=== PATIENT | female | born 1975 | race Caucasian/White ===

== ENCOUNTER 2016-09-03 10:16 | Inpatient (IN) | payer OTHER, BC ==
[~2016-09-03] VITALS: Ht 188 cm; Wt 89.2 kg
[2016-09-03] VITALS (7 sets, daily range): BP systolic 0–97; BP diastolic 0–64
[~2016-09-03 10:16] MED LIST: ABILIFY2 MG PO; BACTRIM,SEPT1 TABLET PO; CLONAZEPAM0.5 MG PO; CYANOCOBAL1000 MCG/2 IM; ENDOCET 5-3251 EACH PO; INVanz IV; KEFLEX500 MG PO; KLONOPIN1 M1 PO; KlonoPIN PO; LEVOXYL175 MCG PO; LEVOXYL200 MCG PO; Levothroid,Synthroid PO; MEMANTINE HCL10 MG PO; NORCO 5/3251 TABLET PO; NORCO 7.5/321 TABLET PO; PERCOCET 5/31 TABLET PO; PRISTIQ50 MG PO; PROTRIPTYLINE HC5 MG PO; SEROQUEL100 MG PO; SYNTHROID100 MCG PO; TOPAMAX100 MG PO; TOPAMAX50 MG PO; TRAZODONE HCL50 MG PO; TROKENDI XR200 MG PO; ULTRAM50 MG PO; VALIUM5 MG PO; VICODIN,LORT1 TABLET PO; ZOFRAN ODT4 MG PO; ZOLPIDEM TART12.5 MG PO; [UNRECOGNIZED DRUG - OTHER] SQ
[2016-09-03 10:27] LABS: CREATININE 0.7 mg/dL (0.6-1.3); POTASSIUM 3.3 mEq/L (3.7-5.4)
[2016-09-03 10:32] LABS: BASOPHIL COUNT 0.1 K/uL (0-0.1); EOSINOPHIL (%) 1.4 % (0-5); EOSINOPHIL COUNT 0.2 K/uL (0-0.3); HEMATOCRIT 35.7 % (36.0-46.0); IMMATURE GRANULOCYTE (%) 0.5 % (0.0-0.7); IMMATURE GRANULOCYTE COUNT 0.1 K/uL; INSTRUMENT ABS NEUTROPHIL CT 7.3 K/uL; MCH 30.1 PG (29.0-34.0); MCHC 34.2 G/DL (30.0-36.0); MCV 88.1 FL (83-99); MEAN PLAT.VOLUME 9.8 uM^3 (9.5-12.4); MONOCYTE (%) 3.4 % (3-12); MONOCYTE COUNT 0.4 K/uL (0-0.8); NEUTROPHIL (%) 61.1 % (45-76); NEUTROPHIL COUNT 7.3 K/uL (1.8-6.4); PLATELET COUNT 212 K/uL (156-360); RBC DIS.WIDTH-CV 12.9 % (11.8-14.6); RBC DIS.WIDTH-SD 41.9 % (39-53); RED BLOOD COUNT 4.05 M/uL (3.80-5.20); WHITE BLOOD COUNT 11.9 K/uL (4.1-10.2)
[2016-09-03 10:41] LABS: AMYLASE 46 IU/L (1-118); CHLORIDE 104 mEq/L (99-109); POTASSIUM 3.3 mEq/L (3.7-5.4); SODIUM 138 mEq/L (136-147)
[2016-09-03 10:43] LABS: GLUCOSE 177 mg/dL (70-99)
[2016-09-03 10:44] LABS: ANION GAP 14 MEQ/L (2-14)
[2016-09-03 10:46] LABS: SERUM ETHYL ALCOHOL < 10 mg/dL
[2016-09-03 10:47] LABS: GFR ESTIMATE (CALCULATED) > 59 mL/min/
[2016-09-03 10:48] LABS: UREA NITROGEN (BUN) 8 mg/dL (9-23)
[2016-09-03 10:50] LABS: LIPASE 16 U/L (1.0-51.0)
[2016-09-03 10:55] LABS: QUANTITATIVE HCG < 4.0 MIU/ML
[2016-09-03 12:58] LABS: ADD MIUA? YES; BILIRUBIN NEGATIVE; BLOOD SMALL; COLOR YELLOW ((YELLOW)); GLUCOSE (STRIP) NEGATIVE; KETONES 20; LEUKOCYTES NEGATIVE; NITRITE NEGATIVE; PROTEIN (STRIP) 100; UROBILINOGEN 0.2 MG/DL (0.2-1.0)
[2016-09-03 13:06] LABS: AMPHETAMINE NEGATIVE (500 ng/mL); BENZODIAZEPINES NEGATIVE (150 ng/mL); COCAINE NEGATIVE (150 ng/mL); METHAMPHETAMINE NEGATIVE (500 ng/mL); OPIATES (MORPHINE) NEGATIVE (100 ng/mL); PHENCYCLIDINE NEGATIVE (25 ng/mL); THC CANNABINOIDS NEGATIVE (50 ng/mL); TRICYCLIC ANTIDEPRESSANTS PRESUMPTIVE POSITIVE (300 ng/mL)
[2016-09-03 13:07] LABS: BACTERIA RARE /HPF; BARBITURATES NEGATIVE (200 ng/mL); EPITHELIAL CELLS RARE /HPF; INTERNAL CONTROLS VALID? YES; METHADONE NEGATIVE (200 ng/mL); MUCUS NONE SEEN /LPF; OXYCODONE NEGATIVE (100 ng/mL); PROPOXYPHENE NEGATIVE (300 ng/mL); UCUL ADDED? NO
[2016-09-03 13:10] LABS: SPECIFIC GRAVITY 1.093 (1.000-1.030)
[2016-09-03 14:59] LABS: HEMATOCRIT 33.8 % (36.0-46.0); MCV 88.7 FL (83-99)
[2016-09-03 15:05] LABS: INTER. NORMALIZED RATIO 1.1; PROTHROMBIN TIME 12.6 SEC (10.2-12.9)
[2016-09-03 16:07] LABS: HEMATOCRIT 31.1 % (36.0-46.0); MCV 89.9 FL (83-99)
[2016-09-03 17:36] LABS: METH RESISTANT S AUREUS PCR NEGATIVE (NEGATIVE)
[2016-09-03 17:39] LABS: PROBE CHECK PASS; SPECIMEN PROCESSING CONTROL PASS
[2016-09-04] VITALS (23 sets, daily range): BP systolic 86–115; BP diastolic 50–66
[2016-09-04 02:57] LABS: MCH 29.4 PG (29.0-34.0); PLAT.SUFFICIENCY DECREASED; PLATELET CLUMPS PRESENT - PLATELET COUNT APPEARS ADQ.; RBC DIS.WIDTH-CV 13.2 % (11.8-14.6); RBC DIS.WIDTH-SD 42.9 % (39-53); RED BLOOD COUNT 3.37 M/uL (3.80-5.20); WHITE BLOOD COUNT 9.7 K/uL (4.1-10.2)
[2016-09-04 06:42] LABS: HEMATOCRIT 27.9 % (36.0-46.0); MCH 30.4 PG (29.0-34.0); MCHC 33.7 G/DL (30.0-36.0); MCV 90.3 FL (83-99); MEAN PLAT.VOLUME 9.9 uM^3 (9.5-12.4); RBC DIS.WIDTH-CV 13.3 % (11.8-14.6); RED BLOOD COUNT 3.09 M/uL (3.80-5.20); WHITE BLOOD COUNT 7.8 K/uL (4.1-10.2)
[2016-09-04 06:53] LABS: POINT-OF-CARE METER ID UU14208751
[2016-09-04 07:21] LABS: PLATELET COUNT 93 K/uL (156-360)
[2016-09-04 07:36] LABS: ALKALINE PHOSPHATASE 39 IU/L (3-129); ANION GAP 12 MEQ/L (2-14); CHLORIDE 105 MEQ/L (99-109); GFR ESTIMATE (CALCULATED) > 59 mL/min/; GLUCOSE 131 mg/dL (70-99); MAGNESIUM 1.6 mg/dl (1.3-2.7); SAMPLE HEMOLYSIS CHECK 0; SAMPLE ICTERIC CHECK 0; SAMPLE LIPEMIA CHECK 0; SODIUM 138 MEQ/L (136-147); TOTAL BILIRUBIN 0.8 MG/DL (0.0-1.0); UREA NITROGEN (BUN) 6 mg/dL (9-23)
[2016-09-04 07:56] LABS: Estimated Average Glucose 108 mg/dL (70-123); HEMOGLOBIN A1c (GLYCOHEMOGLOB) 5.4 % HGB (Below 5.7)
[2016-09-04 12:09] LABS: POINT-OF-CARE METER ID UU13113748; POINT-OF-CARE USER ID AGYTJR
[2016-09-04 12:41] LABS: MCH 30.6 PG (29.0-34.0); MCHC 33.4 G/DL (30.0-36.0); MCV 91.5 FL (83-99); MEAN PLAT.VOLUME 9.9 uM^3 (9.5-12.4); PLATELET COUNT 89 K/uL (156-360); RBC DIS.WIDTH-CV 13.5 % (11.8-14.6); RBC DIS.WIDTH-SD 46.3 % (39-53); RED BLOOD COUNT 3.17 M/uL (3.80-5.20); WHITE BLOOD COUNT 6.6 K/uL (4.1-10.2)
[2016-09-04] MEDS ORDERED: CLONAZEPAM0.5 MG PO (14:45)
[2016-09-04] MEDS ORDERED: LEVO-T175 MCG PO (14:48)
[2016-09-04] MEDS ORDERED: SERTRALINE HCL100 MG PO (14:49)
[2016-09-04] MEDS ORDERED: GABAPENTIN100 MG PO (14:51)
[2016-09-04] MEDS ORDERED: QUETIAPINE FUMA50 MG PO (14:52)
[2016-09-04] MEDS ORDERED: IBUPROFEN800 MG PO (14:55)
[2016-09-04 16:49] LABS: POINT-OF-CARE METER ID UU14208751; POINT-OF-CARE USER ID AGYTJR
[2016-09-04 18:45] LABS: HEMATOCRIT 30.4 % (36.0-46.0); MCH 30.6 PG (29.0-34.0); MCHC 33.6 G/DL (30.0-36.0); MCV 91.3 FL (83-99); PLATELET COUNT 85 K/uL (156-360); RBC DIS.WIDTH-CV 13.6 % (11.8-14.6); RBC DIS.WIDTH-SD 45.7 % (39-53); RED BLOOD COUNT 3.33 M/uL (3.80-5.20); WHITE BLOOD COUNT 7.1 K/uL (4.1-10.2)
[2016-09-05] VITALS (25 sets, daily range): BP systolic 0–123; BP diastolic 0–77
[2016-09-05 00:46] LABS: POINT-OF-CARE METER ID UU13113748
[2016-09-05 00:51] LABS: HEMATOCRIT 26.3 % (36.0-46.0); MCH 29.7 PG (29.0-34.0); MCHC 32.7 G/DL (30.0-36.0); MCV 90.7 FL (83-99); PLATELET COUNT 76 K/uL (156-360); RBC DIS.WIDTH-CV 13.2 % (11.8-14.6); RBC DIS.WIDTH-SD 44.4 % (39-53); WHITE BLOOD COUNT 5.6 K/uL (4.1-10.2)
[2016-09-05 05:45] LABS: HEMATOCRIT 25.8 % (36.0-46.0); MCHC 33.7 G/DL (30.0-36.0); MCV 91.8 FL (83-99); PLATELET COUNT 75 K/uL (156-360); RBC DIS.WIDTH-CV 13.4 % (11.8-14.6); RBC DIS.WIDTH-SD 45.7 % (39-53); RED BLOOD COUNT 2.81 M/uL (3.80-5.20); WHITE BLOOD COUNT 5.1 K/uL (4.1-10.2)
[2016-09-05 06:07] LABS: ANION GAP 5 MEQ/L (2-14); CHLORIDE 107 MEQ/L (99-109); GFR ESTIMATE (CALCULATED) > 59 mL/min/; GLUCOSE 136 mg/dL (70-99); MAGNESIUM 1.8 mg/dl (1.3-2.7); SAMPLE HEMOLYSIS CHECK 0; SAMPLE ICTERIC CHECK 0; SAMPLE LIPEMIA CHECK 0; SODIUM 140 MEQ/L (136-147); UREA NITROGEN (BUN) 3 mg/dL (9-23)
[2016-09-05 06:31] LABS: POINT-OF-CARE METER ID UU13113731
[2016-09-05 12:33] LABS: POINT-OF-CARE METER ID UU13113731; POINT-OF-CARE USER ID AGYTJR
[2016-09-05 13:27] LABS: HEMATOCRIT 28.2 % (36.0-46.0); MCH 29.7 PG (29.0-34.0); MCHC 32.6 G/DL (30.0-36.0); PLATELET COUNT 85 K/uL (156-360); RBC DIS.WIDTH-CV 13.5 % (11.8-14.6); RBC DIS.WIDTH-SD 45.2 % (39-53); WHITE BLOOD COUNT 5.4 K/uL (4.1-10.2)
[2016-09-05 17:54] LABS: POINT-OF-CARE METER ID UU13113731; POINT-OF-CARE USER ID AGYTJR
[2016-09-05 19:57] LABS: EOSINOPHIL (%) 1.8 % (0-5); EOSINOPHIL COUNT 0.1 K/uL (0-0.3); IMMATURE GRANULOCYTE (%) 0.2 % (0.0-0.7); INSTRUMENT ABS NEUTROPHIL CT 3.1 K/uL; MONOCYTE (%) 6.6 % (3-12); MONOCYTE COUNT 0.3 K/uL (0-0.8); NEUTROPHIL (%) 68.8 % (45-76); NEUTROPHIL COUNT 3.1 K/uL (1.8-6.4)
[2016-09-05 22:20] LABS: POINT-OF-CARE METER ID UU14162636
[2016-09-05 22:42] LABS: HEMATOCRIT 26.1 % (36.0-46.0); MCH 31.1 PG (29.0-34.0); MCHC 34.5 G/DL (30.0-36.0); MCV 90.3 FL (83-99); MEAN PLAT.VOLUME 9.7 uM^3 (9.5-12.4); PLATELET COUNT 70 K/uL (156-360); RBC DIS.WIDTH-CV 13.4 % (11.8-14.6); RBC DIS.WIDTH-SD 44.5 % (39-53); RED BLOOD COUNT 2.89 M/uL (3.80-5.20); WHITE BLOOD COUNT 4.6 K/uL (4.1-10.2)
[2016-09-06] VITALS (23 sets, daily range): BP systolic 94–145; BP diastolic 63–90
[2016-09-06 06:39] LABS: ANION GAP 6 MEQ/L (2-14); CHLORIDE 104 MEQ/L (99-109); GFR ESTIMATE (CALCULATED) > 59 mL/min/; GLUCOSE 146 mg/dL (70-99); MAGNESIUM 1.7 mg/dl (1.3-2.7); POTASSIUM 4.3 MEQ/L (3.7-5.4); SAMPLE HEMOLYSIS CHECK 0; SAMPLE ICTERIC CHECK 0; SAMPLE LIPEMIA CHECK 0; SODIUM 138 MEQ/L (136-147)
[2016-09-06 08:10] LABS: UREA NITROGEN (BUN) < 2 mg/dL (9-23)
[2016-09-06 13:54] LABS: POINT-OF-CARE METER ID UU14208751
[2016-09-06 14:18] LABS: HEMATOCRIT 27.9 % (36.0-46.0); MCH 30.5 PG (29.0-34.0); MCHC 34.1 G/DL (30.0-36.0); MCV 89.7 FL (83-99); MEAN PLAT.VOLUME 9.1 uM^3 (9.5-12.4); PLATELET COUNT 88 K/uL (156-360); RBC DIS.WIDTH-CV 13.2 % (11.8-14.6); RBC DIS.WIDTH-SD 43.3 % (39-53); RED BLOOD COUNT 3.11 M/uL (3.80-5.20); WHITE BLOOD COUNT 4.9 K/uL (4.1-10.2)
[2016-09-06 17:24] LABS: POINT-OF-CARE METER ID UU13113731
[2016-09-07] VITALS (14 sets, daily range): BP systolic 90–115; BP diastolic 45–80
[2016-09-07 04:48] LABS: HEMATOCRIT 25.7 % (36.0-46.0); MCH 29.7 PG (29.0-34.0); MCHC 32.7 G/DL (30.0-36.0); MCV 90.8 FL (83-99); MEAN PLAT.VOLUME 9.5 uM^3 (9.5-12.4); PLATELET COUNT 86 K/uL (156-360); RBC DIS.WIDTH-CV 13.2 % (11.8-14.6); RBC DIS.WIDTH-SD 43.6 % (39-53); RED BLOOD COUNT 2.83 M/uL (3.80-5.20); WHITE BLOOD COUNT 3.8 K/uL (4.1-10.2)
[2016-09-07 04:58] LABS: CHLORIDE 104 mEq/L (99-109); MAGNESIUM 1.5 mg/dL (1.3-2.7); POTASSIUM 4.3 mEq/L (3.7-5.4); SODIUM 137 mEq/L (136-147)
[2016-09-07 05:00] LABS: GLUCOSE 113 mg/dL (70-99)
[2016-09-07 05:01] LABS: ANION GAP 5 MEQ/L (2-14)
[2016-09-07 05:04] LABS: GFR ESTIMATE (CALCULATED) > 59 mL/min/; UREA NITROGEN (BUN) 2 mg/dL (9-23)
[2016-09-07 11:38] LABS: POINT-OF-CARE METER ID UU14174217
[2016-09-07 17:16] LABS: POINT-OF-CARE METER ID UU13113748
[2016-09-08] VITALS (7 sets, daily range): BP systolic 98–133; BP diastolic 61–83
[2016-09-08 05:48] LABS: HEMATOCRIT 27.1 % (36.0-46.0); MCHC 33.2 G/DL (30.0-36.0); MCV 90.3 FL (83-99); MEAN PLAT.VOLUME 9.2 uM^3 (9.5-12.4); PLATELET COUNT 111 K/uL (156-360); RBC DIS.WIDTH-CV 13.2 % (11.8-14.6); RBC DIS.WIDTH-SD 42.8 % (39-53); WHITE BLOOD COUNT 3.9 K/uL (4.1-10.2)
[2016-09-08 06:19] LABS: ANION GAP 6 MEQ/L (2-14); CHLORIDE 101 MEQ/L (99-109); GFR ESTIMATE (CALCULATED) > 59 mL/min/; GLUCOSE 90 mg/dL (70-99); MAGNESIUM 1.6 mg/dl (1.3-2.7); SAMPLE HEMOLYSIS CHECK 0; SAMPLE ICTERIC CHECK 0; SAMPLE LIPEMIA CHECK 0; SODIUM 138 MEQ/L (136-147); UREA NITROGEN (BUN) 3 mg/dL (9-23)
[2016-09-08 11:35] LABS: POINT-OF-CARE METER ID UU14174217
[2016-09-08 16:39] LABS: POINT-OF-CARE METER ID UU14174217
[2016-09-08 21:48] LABS: POINT-OF-CARE METER ID UU14174217
[2016-09-09] VITALS (10 sets, daily range): BP systolic 90–131; BP diastolic 60–93
[2016-09-09 05:50] LABS: HEMATOCRIT 28.4 % (36.0-46.0); MCH 29.6 PG (29.0-34.0); MCHC 33.1 G/DL (30.0-36.0); MCV 89.3 FL (83-99); MEAN PLAT.VOLUME 9.2 uM^3 (9.5-12.4); PLATELET COUNT 127 K/uL (156-360); RBC DIS.WIDTH-CV 13.2 % (11.8-14.6); RBC DIS.WIDTH-SD 42.5 % (39-53); RED BLOOD COUNT 3.18 M/uL (3.80-5.20); WHITE BLOOD COUNT 4.9 K/uL (4.1-10.2)
[2016-09-09 06:13] LABS: ANION GAP 8 MEQ/L (2-14); CHLORIDE 100 MEQ/L (99-109); GFR ESTIMATE (CALCULATED) > 59 mL/min/; GLUCOSE 103 mg/dL (70-99); MAGNESIUM 1.6 mg/dl (1.3-2.7); POTASSIUM 3.6 MEQ/L (3.7-5.4); SAMPLE HEMOLYSIS CHECK 0; SAMPLE ICTERIC CHECK 0; SAMPLE LIPEMIA CHECK 0; SODIUM 138 MEQ/L (136-147); UREA NITROGEN (BUN) 5 mg/dL (9-23)
[2016-09-09 11:50] LABS: POINT-OF-CARE METER ID UU14174217
[2016-09-09 18:13] LABS: POINT-OF-CARE METER ID UU14174217
[2016-09-09 21:44] LABS: POINT-OF-CARE METER ID UU14208751
[2016-09-10] VITALS (9 sets, daily range): BP systolic 92–126; BP diastolic 61–75
[2016-09-10 06:02] LABS: HEMATOCRIT 26.5 % (36.0-46.0); MCH 30.7 PG (29.0-34.0); MCV 90.4 FL (83-99); MEAN PLAT.VOLUME 8.8 uM^3 (9.5-12.4); PLATELET COUNT 137 K/uL (156-360); RBC DIS.WIDTH-CV 13.6 % (11.8-14.6); RBC DIS.WIDTH-SD 43.5 % (39-53); RED BLOOD COUNT 2.93 M/uL (3.80-5.20); WHITE BLOOD COUNT 5.4 K/uL (4.1-10.2)
[2016-09-10 06:30] LABS: ANION GAP 7 MEQ/L (2-14); CHLORIDE 102 MEQ/L (99-109); GFR ESTIMATE (CALCULATED) > 59 mL/min/; GLUCOSE 103 mg/dL (70-99); MAGNESIUM 1.6 mg/dl (1.3-2.7); POTASSIUM 3.4 MEQ/L (3.7-5.4); SAMPLE HEMOLYSIS CHECK 0; SAMPLE ICTERIC CHECK 0; SAMPLE LIPEMIA CHECK 0; SODIUM 138 MEQ/L (136-147); UREA NITROGEN (BUN) 5 mg/dL (9-23)
[2016-09-10 11:37] LABS: POINT-OF-CARE METER ID UU14162636
[2016-09-11] VITALS: BP 105/62
[2016-09-11 04:45] VITALS: BP 125/77
[2016-09-11 04:54] LABS: HEMATOCRIT 28.2 % (36.0-46.0); MCH 29.7 PG (29.0-34.0); MCV 90.1 FL (83-99); MEAN PLAT.VOLUME 8.6 uM^3 (9.5-12.4); PLATELET COUNT 154 K/uL (156-360); RBC DIS.WIDTH-CV 13.7 % (11.8-14.6); RBC DIS.WIDTH-SD 43.8 % (39-53); RED BLOOD COUNT 3.13 M/uL (3.80-5.20); WHITE BLOOD COUNT 4.7 K/uL (4.1-10.2)
[2016-09-11 05:15] LABS: CHLORIDE 103 mEq/L (99-109); POTASSIUM 3.4 mEq/L (3.7-5.4); SODIUM 139 mEq/L (136-147)
[2016-09-11 05:16] LABS: GLUCOSE 104 mg/dL (70-99)
[2016-09-11 05:18] LABS: ANION GAP 6 MEQ/L (2-14)
[2016-09-11 05:20] LABS: GFR ESTIMATE (CALCULATED) > 59 mL/min/
[2016-09-11 05:21] LABS: UREA NITROGEN (BUN) 5 mg/dL (9-23)
[2016-09-11 08:38] VITALS: BP 108/76
[2016-09-11 11:00] VITALS: BP 126/70
[2016-09-11 18:00] VITALS: BP 130/89
[2016-09-11 21:00] VITALS: BP 130/81
[2016-09-12 05:57] LABS: ANION GAP 8 MEQ/L (2-14); CHLORIDE 101 MEQ/L (99-109); GFR ESTIMATE (CALCULATED) > 59 mL/min/; GLUCOSE 100 mg/dL (70-99); POTASSIUM 3.2 MEQ/L (3.7-5.4); SAMPLE HEMOLYSIS CHECK 0; SAMPLE ICTERIC CHECK 0; SAMPLE LIPEMIA CHECK 0; SODIUM 138 MEQ/L (136-147); UREA NITROGEN (BUN) 5 mg/dL (9-23)
[2016-09-12 08:15] VITALS: BP 115/75
[2016-09-12 12:45] VITALS: BP 134/83
[2016-09-12] MEDS ORDERED: NIFEREX-150,FE150 MG PO (15:31)
[2016-09-12] MEDS ORDERED: OXYCODONE HCL5 MG PO (15:31)
[2016-09-12 16:00] VITALS: BP 128/75
== END 2016-09-12 17:35 | disposition home or self-care (01) | DRG 964 ==
LOC: TRA 10:16 → EDOF 12:20 → 4WEST 12:20 → CANRESERV 09-10 09:54 → ENRESERV 09-10 09:54 → 4WEST 09-12 17:35
PROVIDERS: Emergency Medicine; Surgery
PROC: 0W9930Z Drainage of Right Pleural Cavity with Drainage Device, Percutaneous Approach (ICD-10-PCS; principal; 2016-09-03)
PROC: 0W9B30Z Drainage of Left Pleural Cavity with Drainage Device, Percutaneous Approach (ICD-10-PCS; principal; 2016-09-03)
PROC: 02HV33Z Insertion of Infusion Device into Superior Vena Cava, Percutaneous Approach (ICD-10-PCS; principal; 2016-09-03)
PROC: 0SS9XZZ Reposition Right Hip Joint, External Approach (ICD-10-PCS; principal; 2016-09-03)
PROC: 0HQ1XZZ Repair Face Skin, External Approach (ICD-10-PCS; principal; 2016-09-03)
DX: S32.491A Other specified fracture of right acetabulum, initial encounter for closed fracture (principal); S36.031A Moderate laceration of spleen, initial encounter; S27.0XXA Traumatic pneumothorax, initial encounter; S27.321A Contusion of lung, unilateral, initial encounter; V47.5XXA Car driver injured in collision with fixed or stationary object in traffic accident, initial encounter; Y92.410 Unspecified street and highway as the place of occurrence of the external cause; Y99.2 Volunteer activity; S06.5X9A Traumatic subdural hemorrhage with loss of consciousness of unspecified duration, initial encounter; S01.81XA Laceration without foreign body of other part of head, initial encounter; R40.2413 Glasgow coma scale score 13-15, at hospital admission; S80.11XA Contusion of right lower leg, initial encounter; S20.219A Contusion of unspecified front wall of thorax, initial encounter; D62 Acute posthemorrhagic anemia; D69.6 Thrombocytopenia, unspecified; E88.09 Other disorders of plasma-protein metabolism, not elsewhere classified; E11.65 Type 2 diabetes mellitus with hyperglycemia; Z79.4 Long term (current) use of insulin; E87.1 Hypo-osmolality and hyponatremia; E83.42 Hypomagnesemia; E87.6 Hypokalemia; K56.7 Ileus, unspecified; K59.09 Other constipation; E89.0 Postprocedural hypothyroidism; E78.5 Hyperlipidemia, unspecified; G43.909 Migraine, unspecified, not intractable, without status migrainosus; Z98.84 Bariatric surgery status; I87.8 Other specified disorders of veins; M51.34 Other intervertebral disc degeneration, thoracic region; M51.36 Other intervertebral disc degeneration, lumbar region; I70.8 Atherosclerosis of other arteries; K22.8 Other specified diseases of esophagus; G47.00 Insomnia, unspecified; F41.0 Panic disorder [episodic paroxysmal anxiety]; F32.9 Major depressive disorder, single episode, unspecified; R11.2 Nausea with vomiting, unspecified; R26.2 Difficulty in walking, not elsewhere classified; L57.4 Cutis laxa senilis; R19.7 Diarrhea, unspecified; Z90.710 Acquired absence of both cervix and uterus; Z90.49 Acquired absence of other specified parts of digestive tract; Z88.5 Allergy status to narcotic agent; Z91.11 Patient's noncompliance with dietary regimen
CPT/HCPCS: 32552; 32557; 70450; 70486; 71010; 71020; 71260; 72125; 72129; 72132; 72192; 73030; 73501; 73552; 74177; 80047; 80048; 80053; 81003; 82150; 82948; 83036; 83690; 83735; 84100; 84702; 85014; 85018; 85025; 85027; 85049; 85610; 85730; 86900; 86901; 87641; 92523 GN; 94799; 97530 GO; 97530 GP; 97532 GN; 99281; 99285; C1769; G0480; J0610; J0690; J1170; J1200; J1815; J2250; J2405; J2550; J3010; J3475; J7030; J7050; Q0169

== ENCOUNTER → 2016-09-19 | Outpatient (CLI) | payer OTHER, BC ==
[~2016-09-19] MED LIST changes: +GABAPENTIN100 MG PO; +IBUPROFEN800 MG PO; +LEVO-T175 MCG PO; +NIFEREX-150,FE150 MG PO; +OXYCODONE HCL5 MG PO; +QUETIAPINE FUMA50 MG PO; +SERTRALINE HCL100 MG PO
== END | disposition home or self-care (01) ==
LOC: RAD 12:05
DX: J93.9 Pneumothorax, unspecified (principal)
CPT/HCPCS: 71020

== ENCOUNTER → 2016-09-19 | Outpatient (CLI) | payer OTHER, BC | END | disposition home or self-care (01) | LOC: AMB 12:30 | PROC: 8E0WXY8 Suture Removal from Trunk Region (ICD-10-PCS; principal; 2016-09-19) | DX: Z48.02 Encounter for removal of sutures (principal); R42 Dizziness and giddiness; D64.9 Anemia, unspecified; M54.5 Low back pain; S73.004D Unspecified dislocation of right hip, subsequent encounter; K22.8 Other specified diseases of esophagus; Z98.84 Bariatric surgery status; T45.4X6A Underdosing of iron and its compounds, initial encounter; Z91.120 Patient's intentional underdosing of medication regimen due to financial hardship | CPT/HCPCS: 99212 ==

== ENCOUNTER 2017-01-22 14:46 | Emergency (ER) | payer OTHER ==
[~2017-01-22] VITALS: Ht 188 cm; Wt 82.9 kg
[2017-01-22 15:39] LABS: HEMATOCRIT 36.9 % (36.0-46.0); HEMOGLOBIN 12.8 G/DL (11.9-15.5); MCH 30.3 PG (29.0-34.0); MCHC 34.7 G/DL (30.0-36.0); MCV 87.2 FL (83-99); PLATELET COUNT 133 K/uL (156-360); RBC DIS.WIDTH-CV 14.6 % (11.8-14.6); RBC DIS.WIDTH-SD 46.9 % (39-53); RED BLOOD COUNT 4.23 M/uL (3.80-5.20); WHITE BLOOD COUNT 5.3 K/uL (4.1-10.2)
[2017-01-22 15:48] LABS: CHLORIDE 105 mEq/L (99-109); POTASSIUM 3.7 mEq/L (3.7-5.4); SODIUM 141 mEq/L (136-147)
[2017-01-22 15:50] LABS: GLUCOSE 98 mg/dL (70-99)
[2017-01-22 15:53] LABS: CREATININE 0.7 mg/dL (0.6-1.3); GFR ESTIMATE (CALCULATED) > 59 mL/min/
[2017-01-22 15:54] LABS: UREA NITROGEN (BUN) 7 mg/dL (9-23)
[2017-01-22 16:02] LABS: QUANTITATIVE HCG < 4.0 MIU/ML
[2017-01-22] MEDS ORDERED: COMPAZINE10 MG PO (17:11)
[2017-01-22 19:27] VITALS: BP 96/65
== END 2017-01-22 19:29 | disposition home or self-care (01) ==
LOC: EME 14:46
DX: E86.0 Dehydration (principal); B34.9 Viral infection, unspecified; G43.909 Migraine, unspecified, not intractable, without status migrainosus; E03.9 Hypothyroidism, unspecified; Z88.5 Allergy status to narcotic agent; Z88.0 Allergy status to penicillin; Z88.8 Allergy status to other drugs, medicaments and biological substances
CPT/HCPCS: 80048; 84702; 85027; 93005; 99281; 99284; J0780; J3411; J7030